=== PATIENT | female | born 1960 | race Caucasian/White ===

== ENCOUNTER 2024-07-31 09:20 | Outpatient (RCR) | payer OTHER, SELFPAY ==
--- NOTE | 2024-07-31 10:00 | XR_ITS ---
Examination: VICENTE, hepatobiliary radioisotope scan Date and time of exam: July 31, 2024 1009 hours INDICATIONS: Right upper abdominal pain radiating to back with nausea vomiting heartburn 5 months Technique: 6 mCi of 99M Hepatolite administered. Serial imaging then obtained from immediate through 60 minutes. Findings: Radioisotope activity within the liver is reasonably homogenous. Common bile duct small bowel activity noted Impression: Abnormal study, cystic duct obstruction, no isotope activity in the gallbladder
== END 2024-08-05 23:59 | disposition home or self-care (01) ==
LOC: SNUC 09:20
PROVIDERS: PCP Colon & Rectal Surgery; Referring Provider Colon & Rectal Surgery; Visit Provider Colon & Rectal Surgery
DX: K82.0 Obstruction of gallbladder (principal)
CPT/HCPCS: 78227; A9537

== ENCOUNTER → 2024-08-09 | Outpatient (CLI) | payer OTHER, SELFPAY | END | disposition home or self-care (01) | LOC: SLDO 12:47 | PROVIDERS: PCP Student in an Organized Health Care Education/Training Program; Referring Provider Student in an Organized Health Care Education/Training Program; Visit Provider Student in an Organized Health Care Education/Training Program | DX: N39.0 Urinary tract infection, site not specified (principal) | CPT/HCPCS: 87086 ==

== ENCOUNTER → 2024-12-07 | Outpatient (CLI) | payer OTHER, SELFPAY ==
--- NOTE | 2024-12-07 14:57 | XR_ITS ---
EXAMINATION: Cervical spine, 5 views Technique: Cervical spine AP, AP odontoid, lateral, bilateral obliques, 5 views Exam date and time: December 07, 2024 1459 hours INDICATIONS: Mid back pain beginning 8 months ago. LUNGS: Satisfactory alignment cervical vertebral bodies Minimal disc narrowing C4-C5 No significant neural foraminal stenosis Intact odontoid No fracture IMPRESSION: Early degenerative disc disease C4-C5
--- NOTE | 2024-12-07 14:57 | XR_ITS ---
Examination: Lumbar spine, 5 views Technique: Lumbar spine AP, lateral, coned lateral lower lumbar spine, bilateral obliques 5 views Exam date and time: December 07, 2024 1459 hours INDICATIONS: Mid back pain beginning 8 months ago FINDINGS: Significant osteopenia Lumbar levoscoliosis 10 degrees Mild to moderate diffuse facet arthropathy No lumbar fracture Mild lumbar spondylosis Mild to moderate lumbar degenerative disc narrowing most prominent L4-L5, L5-S1 IMPRESSION: No lumbar fracture Mild to moderate lumbar degenerative disc disease, most prominent L4-L5, L5-S1
--- NOTE | 2024-12-07 14:57 | XR_ITS ---
Examination: PA lateral chest 2 views TECHNIQUE: Upright PA lateral chest 2 views Exam date and time: December 07, 2024 1508 hours INDICATIONS: Coughing beginning 3 weeks ago. FINDINGS: Normal heart size No lobar pneumonia. No pulmonary edema Significant osteopenia IMPRESSION: No pneumonia identified
--- NOTE | 2024-12-07 14:57 | XR_ITS ---
Examination: Thoracic spine 3 views Technique one AP lateral coned lateral upper dorsal spine 3 views Exam date and time: December 07, 2024 1459 hours INDICATIONS: Lifting injury to the back 8 months ago with back pain. FINDINGS: Minimal kyphosis dorsal spine No acute thoracic fracture Mild to moderate diffuse thoracic disc narrowing Mild to moderate thoracic spondylosis IMPRESSION: Mild to moderate diffuse thoracic degenerative disc disease
== END | disposition home or self-care (01) ==
PROVIDERS: PCP Student in an Organized Health Care Education/Training Program; Referring Provider Student in an Organized Health Care Education/Training Program; Visit Provider Student in an Organized Health Care Education/Training Program
DX: M50.321 Other cervical disc degeneration at C4-C5 level (principal); R05.9 Cough, unspecified; M51.34 Other intervertebral disc degeneration, thoracic region; M51.369 Other intervertebral disc degeneration, lumbar region without mention of lumbar back pain or lower extremity pain; M51.379 Other intervertebral disc degeneration, lumbosacral region without mention of lumbar back pain or lower extremity pain
CPT/HCPCS: 71046; 72050; 72072; 72110

== ENCOUNTER → 2025-02-06 | Outpatient (CLI) | payer OTHER, SELFPAY ==
--- NOTE | 2025-02-06 14:22 | XR_ITS ---
Examination: PA lateral chest 2 views TECHNIQUE: Upright PA lateral chest 2 views Date and time: 02/06/2025 1336 hours INDICATIONS: History pneumonia FINDINGS: Normal heart size No current pneumonia Mild increased AP dimension chest Prominent osteopenia IMPRESSION: No current pneumonia
== END | disposition home or self-care (01) ==
LOC: CDIM 14:05
PROVIDERS: PCP Family Medicine; Referring Provider Student in an Organized Health Care Education/Training Program; Visit Provider Student in an Organized Health Care Education/Training Program
DX: J18.9 Pneumonia, unspecified organism (principal)
CPT/HCPCS: 71046

== ENCOUNTER → 2025-05-17 | Outpatient (BNVA) | payer OTHER, SELFPAY | END | disposition home or self-care (01) | PROVIDERS: PCP Family Medicine; Referring Provider Family Medicine; Visit Provider Urology | DX: N39.0 Urinary tract infection, site not specified (principal); E66.9 Obesity, unspecified; Z68.30 Body mass index [BMI] 30.0-30.9, adult; I10 Essential (primary) hypertension | CPT/HCPCS: 81003; 99212; G0463 ==